=== PATIENT | female | born 1960 | race Caucasian/White ===

== ENCOUNTER 2019-07-26 21:05 | Emergency (ER) | payer SELFPAY ==
[2019-07-26] MEDS ORDERED: Ketorolac Tromethamine 30 MG/ML VIAL ONE (21:23)
[2019-07-26] MEDS ORDERED: Fentanyl 100 MCG/2 ML VIAL ONE (21:23)
[2019-07-26] MEDS ORDERED: Lorazepam 2 MG/ML VIAL ONE (21:23)
[2019-07-26] MEDS ORDERED: Ondansetron PF 4 MG/2 ML Vial ONE (21:23)
--- NOTE | 2019-07-26 21:38 | RAD ---
EXAM: XR Shoulder Rt 3 View STANDARD PROVIDED CLINICAL HISTORY: Pain status post injury COMPARISON: None FINDINGS: Comminuted proximal humeral fracture with nondisplaced humeral neck and mildly displaced greater tube rosity components. Glenohumeral relationship appears normal. Subacromial space is maintained. Visualized right lung field appears clear. IMPRESSION: Comminuted right proximal humeral fracture as described.
== END 2019-07-26 23:41 | disposition home or self-care (01) ==
LOC: ERS 21:05
DX: S42.251A Displaced fracture of greater tuberosity of right humerus, initial encounter for closed fracture (principal); S42.214A Unspecified nondisplaced fracture of surgical neck of right humerus, initial encounter for closed fracture; F41.9 Anxiety disorder, unspecified; Z79.899 Other long term (current) drug therapy; W01.0XXA Fall on same level from slipping, tripping and stumbling without subsequent striking against object, initial encounter; Y92.002 Bathroom of unspecified non-institutional (private) residence as the place of occurrence of the external cause
CPT/HCPCS: 96374; 96375; J1885; J2060; J2405; J3010

== ENCOUNTER 2023-10-13 11:38 | Inpatient (IN) | payer MEDICARE, OTHER ==
[2023-10-13 12:42] LABS: #Basophils 0.1 thou/uL (0.0-0.2); #Eosinphils 0.4 thou/uL (0.0-0.7); #Monocytes 0.7 thou/uL (0.11-0.59); #Neutrophils 4.2 thou/uL (1.40-6.50); %Basophils 0.6 % (0.0-1.0); %Eosinophils 4.5 % (0.0-10.0); %Lymphocytes 36.2 % (21.0-51.0); %Monocytes 7.8 % (0.0-10.0); %Neutrophils 50.5 % (42.0-75.0); Hematocrit 37.7 % (36.0-47.0); Hemoglobin 12.3 g/dL (12.0-16.0); Mean Corpuscular HGB CONC 32.6 g/dL (32.0-36.0); Mean Corpuscular Hemoglobin 29.8 pg (27.0-31.0); Mean Corpuscular Volume 91.3 fl (78.0-98.0); Mean Platelet Volume 9.9 fL (7.4-10.4); Platelet Count 349 10x3/uL (130-400); RBC Distribution Width 12.6 % (11.5-14.5); Red Blood Cell (RBC) Count 4.13 mill/uL (4.20-5.40); White Blood Cell (WBC) Count 8.3 10x3/uL (4.8-10.8)
[2023-10-13 12:59] LABS: ALT (SGPT) 22 U/L (8-55); AST (SGOT) 37 U/L (5-34); Albumin 4.2 g/dL (3.4-4.8); Alkaline Phosphatase 59 U/L (40-110); Anion Gap 11 mmol/L (10-20); BUN (Urea Nitrogen) 14 mg/dL (9.8-20.1); Bilirubin, Total 0.3 mg/dL (0.2-1.2); Calc. Creatinine Clearance 0 mL/min (70-130); Calcium 9.5 mg/dL (7.8-10.44); Carbon Dioxide 24 mmol/L (23-31); Chloride 109 mmol/L (98-107); Estimated GFR 87; Globulin 2.8 g/dL (2.4-3.5); Glucose 98 mg/dL (80-115); Potassium 3.9 mmol/L (3.5-5.1); Sodium 140 mmol/L (136-145)
[2023-10-13 13:00] LABS: Troponin I Less than 0.010 ng/mL (< 0.028)
[2023-10-13 16:01] LABS: Troponin I 0.018 ng/mL (< 0.028)
[2023-10-13] MEDS ORDERED: Artificial Tear Sol 15 ML BOT EA EYE PRN (16:04)
[2023-10-13] MEDS ORDERED: Acetaminophen 650 MG Suppository PR PRN (16:04)
[2023-10-13] MEDS ORDERED: Sodium Chloride 0.65% Nasal 44 ML BOT EA NARE PRN (16:04)
[2023-10-13] MEDS ORDERED: Loratadine 10 MG TAB PO PRN (16:04)
[2023-10-13] MEDS ORDERED: Moisturizing Cream (Eucerin) 113 GM JAR TOP PRN (16:04)
[2023-10-13] MEDS ORDERED: diphenhydrAMINE 25 MG CAP PO PRN (16:04)
[2023-10-13] MEDS ORDERED: Aspirin Chewable 81 MG TAB ONE (18:26)
[2023-10-13] MEDS: Aspirin Chewable 81 MG TAB PO SCH (18:32)
[2023-10-13 19:07] LABS: Troponin I Less than 0.010 ng/mL (< 0.028)
[2023-10-13] MEDS: Escitalopram Oxalate 10 mg Tablet PO SCH (20:41)
[2023-10-13] MEDS: Atorvastatin Calcium 40 MG TAB PO SCH (20:41)
[2023-10-13] MEDS: Bisoprolol Fumarate 5 MG TAB PO SCH (20:41)
[2023-10-13 22:27] VITALS: BMI 35.1
[2023-10-13 22:32] LABS: Troponin I 0.012 ng/mL (< 0.028)
[2023-10-14 05:20] LABS: Anion Gap 11 mmol/L (10-20); BUN (Urea Nitrogen) 15 mg/dL (9.8-20.1); Calc. Creatinine Clearance 98 mL/min (70-130); Calcium 8.6 mg/dL (7.8-10.44); Carbon Dioxide 25 mmol/L (23-31); Cardiac Risk 3.5 (Less than 4.5); Chloride 109 mmol/L (98-107); Cholesterol 129 mg/dl (< 200 Desired); Estimated GFR 82; Glucose 98 mg/dL (80-115); HDL Cholesterol 37 mg/dL (>60 Neg Risk); LDL Cholesterol, Calculated 65 mg/dL; Potassium 3.7 mmol/L (3.5-5.1); Sodium 141 mmol/L (136-145); Triglycerides 136 mg/dL (Less than 150)
[2023-10-14] MEDS: Levothyroxine Sodium 88 MCG TAB PO SCH (05:25)
[2023-10-14] MEDS ORDERED: Aspirin Chewable 81 MG TAB PO SCH (09:00)
[2023-10-14] MEDS ORDERED: ADENOSINE 60 MG/20 ML SDV ONE (10:04)
[2023-10-14] MEDS: Enoxaparin 40 MG (0.4 mL) SYRINGE SC SCH (12:30)
[2023-10-14] MEDS: Aspirin Chewable 81 MG TAB PO SCH (12:30)
[2023-10-14] MEDS: Acetaminophen 325 MG TAB PO PRN (15:22)
[2023-10-14] MEDS: Fenofibrate Nanocrystallized 145 MG TAB PO SCH (16:41)
[2023-10-14] MEDS: SUMAtriptan Succinate 50 MG TAB PO SCH (17:33)
[2023-10-14] MEDS: Bisoprolol Fumarate 5 MG TAB PO SCH (20:13)
[2023-10-14] MEDS: Lorazepam 0.5 MG TAB PO PRN (20:14)
[2023-10-15] MEDS: Sodium Chloride 0.9% 1,000 ML IV SCH (00:45)
[2023-10-15] MEDS: Fenofibrate Nanocrystallized 145 MG TAB PO SCH (09:15)
[2023-10-15] MEDS ORDERED: Heparin 10,000 UNITS/ 10 ML VIAL ONE (13:17)
[2023-10-15] MEDS ORDERED: Nitroglycerin 50 MG/250 ML BOT 250 ML ONE (13:17)
[2023-10-15] MEDS ORDERED: fentaNYL 50 mcg/mL 1 mL Vial ONE (13:52)
[2023-10-15] MEDS ORDERED: Midazolam HCl 2 mg/2 ml Vial ONE (13:53)
[2023-10-15] MEDS ORDERED: Verapamil 5 MG/2 ML VIAL ONE (13:59)
[2023-10-15] MEDS ORDERED: Acetaminophen/Codeine 30-300mg Tablet PO PRN (14:28)
[2023-10-15] MEDS ORDERED: Sodium Chloride 0.9% 200 ML IV PRN (14:28)
[2023-10-15 15:39] VITALS: BP 125/72; TEMP 97.8
== END 2023-10-15 17:44 | disposition home or self-care (01) | DRG 287 ==
LOC: ERS 11:38 → ERHOLD 14:55 → 2NO 20:20 → OBSVTOIN 10-14 13:17
PROVIDERS: ADMIT Family Medicine; ATTEND Family Medicine
PROC: 4A023N7 Measurement of Cardiac Sampling and Pressure, Left Heart, Percutaneous Approach (ICD-10-PCS; principal; 2023-10-15)
PROC: B2111ZZ Fluoroscopy of Multiple Coronary Arteries using Low Osmolar Contrast (ICD-10-PCS; 2023-10-15)
PROC: B2151ZZ Fluoroscopy of Left Heart using Low Osmolar Contrast (ICD-10-PCS; 2023-10-15)
DX: I49.3 Ventricular premature depolarization (principal); R07.89 Other chest pain; E03.9 Hypothyroidism, unspecified; R00.2 Palpitations; K21.9 Gastro-esophageal reflux disease without esophagitis; E78.5 Hyperlipidemia, unspecified; I34.0 Nonrheumatic mitral (valve) insufficiency; Z88.1 Allergy status to other antibiotic agents; Z98.890 Other specified postprocedural states; Z90.710 Acquired absence of both cervix and uterus; Z90.89 Acquired absence of other organs; Z79.82 Long term (current) use of aspirin; Z79.899 Other long term (current) drug therapy; Z79.890 Hormone replacement therapy
CPT/HCPCS: 36415; 71045; 78452; 80048; 80053; 80061; 84443; 84484; 85025; 93005; 93017; 93306; 94760; A9502; C1769; J0153; J1644; J1650; J2250; J3010; J7050

== ENCOUNTER 2023-12-06 07:20 | Outpatient (CLI) | payer MEDICARE, OTHER ==
[2023-12-06 09:21] LABS: #Basophils 0.07 10x3/uL (0.0-0.2); #Eosinphils 0.36 10x3/uL (0.0-0.5); #Monocytes 0.58 10x3/uL (0.0-1.1); #Neutrophils 5.13 10x3/uL (1.5-8.4); %Basophils 0.8 % (0.0-2.0); %Monocytes 6.5 % (0.0-10.0); %Neutrophils 57.4 % (40.0-75.0); Hemoglobin 13.6 g/dL (12.0-15.5); Mean Corpuscular HGB CONC 32.4 g/dL (32.0-36.0); Mean Corpuscular Hemoglobin 29.6 pg (27.0-33.0); Mean Corpuscular Volume 91.3 fl (81.6-98.3); Mean Platelet Volume 10.3 fl (7.4-10.4); Platelet Count 395 10x3/uL (150-450); White Blood Cell (WBC) Count 8.9 10x3/uL (3.5-10.5)
[2023-12-06 09:29] LABS: ALT (SGPT) 26 U/L (8-55); AST (SGOT) 49 U/L (5-34); Albumin 4.3 g/dL (3.4-4.8); Alkaline Phosphatase 68 U/L (40-110); Anion Gap 13 mmol/L (10-20); BUN (Urea Nitrogen) 15 mg/dL (9.8-20.1); Bilirubin, Total 0.5 mg/dL (0.2-1.2); Calc. Creatinine Clearance 0 mL/min (70-130); Calcium 9.8 mg/dL (7.8-10.44); Carbon Dioxide 21 mmol/L (23-31); Chloride 108 mmol/L (98-107); Estimated GFR 79; Globulin 3.3 g/dL (2.4-3.5); Glucose 110 mg/dL (80-115); Potassium 4.4 mmol/L (3.5-5.1); Protein, Total 7.6 g/dL (5.8-8.1); Sodium 138 mmol/L (136-145)
[2023-12-06 15:35] LABS: Hemoglobin A1c 5.8 % (4.0-6.0)
== END 2023-12-06 07:21 | disposition home or self-care (01) ==
LOC: LABBT 07:20
PROVIDERS: ATTEND Surgery
DX: Z01.818 Encounter for other preprocedural examination (principal); K21.9 Gastro-esophageal reflux disease without esophagitis
CPT/HCPCS: 71046; 80053; 83036; 85025

== ENCOUNTER 2024-01-19 07:55 | Outpatient (CLI) | payer MEDICARE, OTHER | END 2024-01-19 07:56 | disposition home or self-care (01) | LOC: BICMAMMO 07:55 | PROVIDERS: ATTEND Student in an Organized Health Care Education/Training Program | DX: Z13.820 Encounter for screening for osteoporosis (principal); M85.851 Other specified disorders of bone density and structure, right thigh; M85.852 Other specified disorders of bone density and structure, left thigh; Z78.0 Asymptomatic menopausal state | CPT/HCPCS: 77080 ==

== ENCOUNTER 2025-03-22 10:24 | Outpatient (CLI) | payer MEDICARE, OTHER | END 2025-03-22 10:25 | disposition home or self-care (01) | LOC: BICMAMMO 10:24 | PROVIDERS: ATTEND Family Medicine | DX: Z12.31 Encounter for screening mammogram for malignant neoplasm of breast (principal); M81.0 Age-related osteoporosis without current pathological fracture; Z78.0 Asymptomatic menopausal state; Z80.3 Family history of malignant neoplasm of breast; Z85.828 Personal history of other malignant neoplasm of skin; Z91.89 Other specified personal risk factors, not elsewhere classified | CPT/HCPCS: 77063; 77067; 77080 ==